=== PATIENT | female | born 1975 | race Caucasian/White ===

== ENCOUNTER 2017-01-13 02:51 | Emergency (ER) | payer BC ==
[~2017-01-13] VITALS: Ht 154.9 cm; Wt 49.0 kg
[2017-01-13 03:07] VITALS: BP_SYST 125
[2017-01-13] MEDS ORDERED: KETOROLAC TROMETHAMINE 30 MG VIAL IVP ONE ×2 (03:45→04:15)
[2017-01-13] MEDS ORDERED: ONDANSETRON HCL 4 MG/2 ML VIAL IVP ONE (03:45)
[2017-01-13] MEDS ORDERED: NACL 0.9% 1,000 ML IV ONE (03:45)
[2017-01-13 03:59] LABS: BILIRUBIN,URINE NEGATIVE (NEGATIVE); BLOOD, URINE 3+ (NEGATIVE); CLARITY/URINE CLOUDY (CLEAR); COLOR,URINE YELLOW (YELLOW); GLUCOSE,URINE NEGATIVE (NEGATIVE); KETONES,URINE 2+ (NEGATIVE); LEUKOCYTE ESTERASE ,URINE NEGATIVE (NEGATIVE); NITRITE, URINE NEGATIVE (NEGATIVE); PROTEIN URINE 1+ (NEGATIVE); UROBILINOGEN,URINE 0.2 (0.2-1.0)
[2017-01-13 04:01] LABS: BASOPHILS # (AUTO) 0.1 K/uL (0.0-0.2); BASOPHILS % (AUTO) 0.7 % (0.0-2.0); EOSINOPHILS % (AUTO) 0.4 % (0.0-4.0); HEMOGLOBIN 9.6 g/dL (12.0-16.0); LYMPHOCYTES # (AUTO) 1.9 K/uL (1.0-5.5); LYMPHOCYTES % (AUTO) 18.2 % (20.5-51.5); MEAN CORPUSCULAR HEMOGLOBIN 23 pg (27-31); MEAN CORPUSCULAR HGB CONC 31 % (32-36); MEAN CORPUSCULAR VOLUME 75 fL (79.0-98.0); MONOCYTES # (AUTO) 0.3 K/uL (0.0-1.0); MONOCYTES % (AUTO) 3.2 % (1.7-9.3); NEUTROPHILS # (AUTO) 8.1 K/uL (1.8-7.7); NEUTROPHILS % (AUTO) 77.5 % (40.0-70.0); PLATELET COUNT (AUTO) 315 K/uL (130-430); RED BLOOD CELL COUNT(AUTO) 4.15 MIL/uL (4.2-6.2); RED CELL DISTRIBUTION WIDTH 14.2 % (9.0-15.0); WHITE BLOOD COUNT (AUTO) 10.4 K/uL (4.8-10.8)
[2017-01-13 04:06] LABS: CALCIUM 8.8 mg/dL (8.4-11.0); CREATININE 0.64 mg/dL (0.55-1.30); POTASSIUM 3.5 mmol/L (3.5-5.1)
[2017-01-13 04:07] LABS: BACTERIA,URINE FEW /HPF (None Seen); MUCUS,URINE 1+ /LPF (None Seen); RBC,URINE >100 /HPF (0-3)
[2017-01-13 04:11] LABS: ALBUMIN 3.9 g/dL (3.4-4.8); TOTAL BILIRUBIN 0.6 mg/dL (0.0-1.0); TOTAL PROTEIN, SERUM 7.8 g/dL (6.4-8.3)
[2017-01-13] MEDS ORDERED: KETOROLAC TROMETHAMINE 30 MG VIAL ONE (04:18)
[2017-01-13 06:15] VITALS: BP_SYST 133
== END 2017-01-13 06:15 | disposition home or self-care (01) ==
LOC: SED 02:51
DX: N20.0 Calculus of kidney (principal)
CPT/HCPCS: 36415; 74176; 80053; 81000; 81025; 85025; 96361; 96374; 96375; 99285; J1885; J2405; J7030

== ENCOUNTER 2020-07-06 14:19 | Emergency (ER) | payer BC, SELFPAY ==
[~2020-07-06] VITALS: Ht 157.5 cm; Wt 49.9 kg
[2020-07-06 14:28] VITALS: BP_SYST 128
[2020-07-06] MEDS ORDERED: AZIT500T3 PO (14:36)
[2020-07-06] MEDS ORDERED: ZINC220T4 PO (14:36)
[2020-07-06] MEDS ORDERED: DEC1 PO (14:36)
[2020-07-06] MEDS ORDERED: HYDR200T80 PO ×2 (14:36)
--- NOTE | 2020-07-06 18:00 | NUR ---
Patient to ER Fast Track to gown for evaluation. Side rails up.
--- NOTE | 2020-07-06 18:15 | NUR ---
Dr. Galarza chair side for pt roseline
--- NOTE | 2020-07-06 18:20 | NUR ---
Pt BIB family to ED seeking evaluation of 1-week history of dry, nonproductive cough associated congestion, ageusia, and anosmia. No relieving or exacerbating factors. She denies any fever, chills, sick contacts, GI symptoms, or recent travel.
[2020-07-06 18:45] VITALS: BP_SYST 128
--- NOTE | 2020-07-06 18:45 | NUR ---
Patient given written and verbal discharge instructions and verbalizes understanding. ER MD discussed with patient the results and treatment provided. Patient in stable condition. ID arm band removed. Patient educated on pain management and to follow up with PMD. Pain Scale 0/10 Opportunity for questions provided and answered.
== END 2020-07-06 18:45 | disposition home or self-care (01) ==
LOC: SED 14:19
DX: R05 Cough (principal); R09.81 Nasal congestion; Z79.899 Other long term (current) drug therapy
CPT/HCPCS: 71046-TC; 99283

== ENCOUNTER 2022-06-23 09:53 | Emergency (ER) | payer BC ==
[~2022-06-23] VITALS: Ht 157.5 cm; Wt 61.2 kg
[~2022-06-23 09:53] MED LIST: AZIT500T3 PO; DEC1 PO; HYDR200T80 PO; ZINC220T4 PO
[2022-06-23 10:00] VITALS: BP_SYST 124
--- NOTE | 2022-06-23 10:00 | NUR ---
Patient triaged and placed in waiting room. VSS and patient appears in no acute distress at this time. Accompanied by [facility], awaiting available bed, and MD notified of need for MSE.
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
[2022-06-23] MEDS ORDERED: ACETAMINOPHEN 500 MG TABLET PO ONE (14:00)
[2022-06-23] MEDS ORDERED: KETOROLAC TROMETHAMINE 30 MG VIAL IM ONE (14:15)
--- NOTE | 2022-06-23 14:15 | NUR ---
Dr Glez evaluating patient in the triage room
--- NOTE | 2022-06-23 15:25 | NUR ---
Gustavo HAMILTON taking report from patient at this time.
[2022-06-23] MEDS ORDERED: ONDA-8 TL (16:03)
[2022-06-23] MEDS ORDERED: IBUP-1971 PO (16:03)
--- NOTE | 2022-06-23 17:07 | NUR ---
Patient given written and verbal discharge instructions and verbalizes understanding. ER MD discussed with patient the results and treatment provided. Patient in stable condition. ID arm band removed. Rx of MOTRIN,ZOFRAN given. Patient educated on pain management and to follow up with PMD. Pain Scale 2. Opportunity for questions provided and answered. Medication side effect fact sheet provided.
== END 2022-06-23 17:07 | disposition home or self-care (01) ==
LOC: SED 09:53
DX: S00.03XA Contusion of scalp, initial encounter (principal); F07.81 Postconcussional syndrome; Z79.899 Other long term (current) drug therapy; Y04.8XXA Assault by other bodily force, initial encounter; Y93.89 Activity, other specified; Y92.89 Other specified places as the place of occurrence of the external cause; Y99.8 Other external cause status
CPT/HCPCS: 99284; 70450; 72125; 76376; 81025; 96372; J1885

== ENCOUNTER 2023-03-31 19:08 | Emergency (ER) | payer OTHER, BC ==
[~2023-03-31] VITALS: Ht 157.5 cm; Wt 49.0 kg
[~2023-03-31 19:08] MED LIST changes: +IBUP-1971 PO; +ONDA-8 TL
[2023-03-31 19:28] VITALS: BP_SYST 113; PULSE 75; RESP 18; TEMP 97.9; O2SAT 100
[2023-03-31] MEDS ORDERED: IBUPROFEN 800 MG TABLET PO ONE (21:15)
[2023-03-31] MEDS ORDERED: SOM350 PO (21:29)
[2023-03-31] MEDS ORDERED: IBUP-1969 PO (21:29)
[2023-03-31 21:34] VITALS: BP_SYST 115; PULSE 73; RESP 17; TEMP 97.8; O2SAT 98
== END 2023-03-31 21:34 | disposition home or self-care (01) ==
LOC: SED 19:08
DX: S13.4XXA Sprain of ligaments of cervical spine, initial encounter (principal); S09.90XA Unspecified injury of head, initial encounter; Z79.899 Other long term (current) drug therapy; V49.40XA Driver injured in collision with unspecified motor vehicles in traffic accident, initial encounter; Y93.89 Activity, other specified; Y92.89 Other specified places as the place of occurrence of the external cause; Y99.8 Other external cause status
CPT/HCPCS: 70450-TC; 71045; 72125-TC; 73030; 76376; 81025; 99284